=== PATIENT | female | born 1945 | race Caucasian/White ===

== ENCOUNTER 2018-04-16 06:59 | Day surgery (SDC) | payer OTHER ==
[2018-04-16] MEDS ORDERED: FENTAnyl 50 MCG/ML VIAL (10:03)
[2018-04-16] MEDS ORDERED: MIDAZOLAM 1 MG/ML 2 ML INJ ×2 (10:03)
== END 2018-04-16 11:59 | disposition home or self-care (01) ==
LOC: GIL 06:59
DX: K29.30 Chronic superficial gastritis without bleeding (principal); R19.4 Change in bowel habit; K44.9 Diaphragmatic hernia without obstruction or gangrene; K21.9 Gastro-esophageal reflux disease without esophagitis; D12.6 Benign neoplasm of colon, unspecified; K64.8 Other hemorrhoids
CPT/HCPCS: 43239; 88305; 88312; 93005